=== PATIENT | female | born 1940 | race African-American/Black ===

== ENCOUNTER 2021-01-08 19:07 | Inpatient (IN) | payer MEDICARE, MEDICAID ==
[~2021-01-08] VITALS: Ht 160 cm; Wt 88.5 kg
[~2021-01-08 19:07] MED LIST: AMLO10TA80 PO; QUET100T PO; SIMV10TA97 PO
[2021-01-08 20:00] VITALS: BP 147/79
[2021-01-08] MEDS ORDERED: IPRATROPIUM/ALBUTEROL 0.5-3(2.5)MG/3ML NEB NEB PRN (20:30)
[2021-01-08] MEDS ORDERED: KETOROLAC 15MG/ML VIAL IV PRN (20:30)
[2021-01-08] MEDS ORDERED: MAGNESIUM/ALUMINUM HYDROXIDE/SIMETHICONE 30ML UDC PO PRN (20:30)
[2021-01-08] MEDS ORDERED: CLONIDINE 0.1MG TABLET PO PRN (20:30)
[2021-01-08] MEDS ORDERED: DOCUSATE SODIUM 100MG CAPSULE PO PRN (20:30)
[2021-01-08] MEDS ORDERED: NA PHOS,M-B/NA PHOS,DI-BA ENEMA 118ML PR PRN (20:30)
[2021-01-08] MEDS ORDERED: TRAMADOL 50MG TABLET PO PRN (20:30)
[2021-01-08] MEDS ORDERED: ACETAMINOPHEN 325MG TABLET PO PRN ×2 (20:30)
[2021-01-08] MEDS ORDERED: ONDANSETRON HCL 4MG/2ML INJ IV PRN (20:30)
[2021-01-08] MEDS ORDERED: GUAIFENESIN 200MG/10ML SUGAR FREE UDC PO PRN (20:30)
[2021-01-08] MEDS ORDERED: DEXTROSE 50% WATER 50ML SYRINGE IV PRN (21:45)
[2021-01-08 22:18] VITALS: BP 147/79
[2021-01-09] VITALS: BP 145/86
[2021-01-09 01:58] LABS: CLARITY URINE CLEAR (CLEAR); COLOR URINE YELLOW (YELLOW); KETONES URINE NEGATIVE (NEGATIVE); LEUKOCYTE ESTERASE URINE 3+ (NEGATIVE); NITRITE URINE NEGATIVE (NEGATIVE); OCCULT BLOOD URINE NEGATIVE (NEGATIVE); PH URINE 5.5 (4.5-8.0); PROTEIN URINE NEGATIVE (NEGATIVE); SPECIFIC GRAVITY URINE 1.014 (1.005-1.030); UROBILINOGEN URINE 0.2 E.U./dL (0.2-1.0)
[2021-01-09 02:08] LABS: *AMPHETAMINES SCREEN URINE NEGATIVE (NEGATIVE); *BARBITURATES SCREEN URINE NEGATIVE (NEGATIVE); *BENZODIAZEPINES SCREEN URINE NEGATIVE (NEGATIVE); *COCAINE SCREEN URINE NEGATIVE (NEGATIVE)
[2021-01-09 02:09] LABS: CANNABINOID URINE SCREEN NEGATIVE (NEGATIVE); METHADONE URINE SCREEN NEGATIVE (NEGATIVE); OPIATES URINE SCREEN NEGATIVE (NEGATIVE); PHENCYCLIDINE URINE SCREEN NEGATIVE (NEGATIVE)
[2021-01-09] MEDS: ASCORBIC ACID 500 MG TABLET PO SCH ×3 (03:20→20:24)
[2021-01-09 04:00] VITALS: BP 139/81
[2021-01-09 07:13] LABS: CHLORIDE 111 mEq/L (98-107)
[2021-01-09 07:16] LABS: BASOPHILS % 1.3 % (0.0-2.0); EOSINOPHILS % 3.2 % (0.0-5.0); HEMATOCRIT. 36.6 % (36.0-48.0); HEMOGLOBIN. 12.6 g/dL (12.0-16.0); MEAN CORPUSCULAR HEMOGLOBIN 31.8 pg (28.0-32.0); MEAN CORPUSCULAR VOLUME 92.2 fL (81.0-99.0); MEAN PLATELET VOLUME 8.6 fl (7.4-10.4); MONOCYTES % 7.6 % (2.0-8.0); NEUTROPHILS % 64.9 % (40.0-76.0); PHOSPHORUS 3.5 mg/dL (2.5-4.9); PLATELET 191 x1000/uL (130-400); RED BLOOD CELL COUNT 3.97 mill/uL (4.2-5.4); RED CELL DISTRIBUTION WIDTH 14.2 % (11.6-14.6)
[2021-01-09 07:17] LABS: LDL CHOLESTEROL 115 mg/dL (5-100)
[2021-01-09 07:18] LABS: CREATINE KINASE 86 IU/L (26-192); HDL CHOLESTEROL 86 mg/dL (40-59)
[2021-01-09 07:21] LABS: CREATINE KINASE MB FRACTION 1.2 ng/mL (0.5-3.6)
[2021-01-09 07:25] LABS: T4 FREE 0.97 ng/dL (0.76-1.46); TOTAL IRON BINDING CAPACITY 331 ug/dL (250-450)
[2021-01-09 07:30] LABS: FOLIC ACID (FOLATE) SERUM >20 ng/mL ng/mL (>5.38)
[2021-01-09] MEDS: BLOOD SUGAR DIAGNOSTIC STRIP TEST SCH ×4 (07:38→20:40)
[2021-01-09 07:41] LABS: VITAMIN B12 SERUM 630 pg/mL (211-911)
[2021-01-09] MEDS: INSULIN LISPRO 100 UNITS/ML SUBCUT SCH ×4 (07:50→20:41)
[2021-01-09 08:00] VITALS: BP 122/74
[2021-01-09] MEDS ORDERED: ASPIRIN 325MG EC TABLET PO SCH (09:00)
[2021-01-09] MEDS: FAMOTIDINE 20MG TABLET PO SCH ×2 (10:28→20:24)
[2021-01-09] MEDS: CLOPIDOGREL 75MG TABLET PO SCH (10:28)
[2021-01-09] MEDS: ZINC SULFATE 220 MG ( 50 ) CAPSULE PO SCH (10:28)
[2021-01-09] MEDS: ENOXAPARIN 40MG/0.4ML SYR SUBCUT SCH (10:29)
[2021-01-09 12:00] VITALS: BP 141/71
[2021-01-09] MEDS: PIPERACILLIN/TAZOBACTAM 3.375 G in DEXT 5% WATER 100 ML IV SCH ×2 (15:13→20:24)
[2021-01-09 16:00] VITALS: BP 124/68
[2021-01-09] MEDS: VANCOMYCIN 750 MG PREMIX 150 ML IV SCH (17:55)
[2021-01-09 20:00] VITALS: BP 122/66
[2021-01-10] MEDS: PIPERACILLIN/TAZOBACTAM 3.375 G in DEXT 5% WATER 100 ML IV SCH ×4 (02:00→20:00)
[2021-01-10 04:00] VITALS: BP 125/65
[2021-01-10] MEDS: BLOOD SUGAR DIAGNOSTIC STRIP TEST SCH ×4 (07:20→20:47)
[2021-01-10] MEDS: INSULIN LISPRO 100 UNITS/ML SUBCUT SCH ×4 (07:50→20:46)
[2021-01-10 08:00] VITALS: BP 143/68
[2021-01-10] MEDS: VANCOMYCIN 750 MG PREMIX 150 ML IV SCH (08:00)
[2021-01-10] MEDS: ASCORBIC ACID 500 MG TABLET PO SCH ×2 (09:13→20:45)
[2021-01-10] MEDS: ZINC SULFATE 220 MG ( 50 ) CAPSULE PO SCH (09:13)
[2021-01-10] MEDS: ENOXAPARIN 40MG/0.4ML SYR SUBCUT SCH (09:13)
[2021-01-10] MEDS: CLOPIDOGREL 75MG TABLET PO SCH (09:14)
[2021-01-10] MEDS: FAMOTIDINE 20MG TABLET PO SCH ×2 (09:14→20:45)
[2021-01-10 12:00] VITALS: BP 127/73
[2021-01-10 16:00] VITALS: BP 126/77
[2021-01-10 20:00] VITALS: BP 142/74
[2021-01-10] MEDS: ZOLPIDEM TARTRATE 5MG TABLET PO PRN (23:02)
[2021-01-11] MEDS: VANCOMYCIN 750 MG PREMIX 150 ML IV SCH ×2 (02:00→20:00)
[2021-01-11] MEDS: PIPERACILLIN/TAZOBACTAM 3.375 G in DEXT 5% WATER 100 ML IV SCH ×4 (02:00→20:00)
[2021-01-11 04:00] VITALS: BP 134/88
[2021-01-11] MEDS: BLOOD SUGAR DIAGNOSTIC STRIP TEST SCH ×4 (06:52→20:47)
[2021-01-11] MEDS: INSULIN LISPRO 100 UNITS/ML SUBCUT SCH ×4 (07:50→20:47)
[2021-01-11 08:00] VITALS: BP 139/82
[2021-01-11] MEDS: ZINC SULFATE 220 MG ( 50 ) CAPSULE PO SCH (08:51)
[2021-01-11] MEDS: ENOXAPARIN 40MG/0.4ML SYR SUBCUT SCH (08:51)
[2021-01-11] MEDS: FAMOTIDINE 20MG TABLET PO SCH ×2 (08:51→20:42)
[2021-01-11] MEDS: ASCORBIC ACID 500 MG TABLET PO SCH ×2 (08:51→20:42)
[2021-01-11] MEDS: CLOPIDOGREL 75MG TABLET PO SCH (08:51)
[2021-01-11 12:00] VITALS: BP 157/72
[2021-01-11 16:00] VITALS: BP 132/45
[2021-01-11 20:00] VITALS: BP 120/72
[2021-01-11] MEDS: ZOLPIDEM TARTRATE 5MG TABLET PO PRN (20:41)
[2021-01-11 23:51] VITALS: BP 123/66
[2021-01-12] VITALS: BP 131/78
[2021-01-12] MEDS: PIPERACILLIN/TAZOBACTAM 3.375 G in DEXT 5% WATER 100 ML IV SCH ×2 (01:09→08:00)
[2021-01-12 04:00] VITALS: BP 154/74
[2021-01-12] MEDS: BLOOD SUGAR DIAGNOSTIC STRIP TEST SCH ×2 (06:44→12:03)
[2021-01-12] MEDS: INSULIN LISPRO 100 UNITS/ML SUBCUT SCH ×2 (07:50→12:03)
[2021-01-12 08:00] VITALS: BP 134/60
[2021-01-12] MEDS: FAMOTIDINE 20MG TABLET PO SCH (08:54)
[2021-01-12] MEDS: ZINC SULFATE 220 MG ( 50 ) CAPSULE PO SCH (08:54)
[2021-01-12] MEDS: CLOPIDOGREL 75MG TABLET PO SCH (08:54)
[2021-01-12] MEDS: ASCORBIC ACID 500 MG TABLET PO SCH (08:54)
[2021-01-12] MEDS: ENOXAPARIN 40MG/0.4ML SYR SUBCUT SCH (08:55)
[2021-01-12 12:04] VITALS: BP 123/66
== END 2021-01-12 12:30 | DRG 871 ==
LOC: 6EST 19:07
PROVIDERS: ADMIT Internal Medicine; ATTEND Internal Medicine
DX: A41.9 Sepsis, unspecified organism (principal); G92 Toxic encephalopathy; N39.0 Urinary tract infection, site not specified; Z66 Do not resuscitate; E66.9 Obesity, unspecified; E11.9 Type 2 diabetes mellitus without complications; F03.90 Unspecified dementia, unspecified severity, without behavioral disturbance, psychotic disturbance, mood disturbance, and anxiety; I10 Essential (primary) hypertension; E78.00 Pure hypercholesterolemia, unspecified; Z79.02 Long term (current) use of antithrombotics/antiplatelets; Z79.4 Long term (current) use of insulin; Z86.73 Personal history of transient ischemic attack (TIA), and cerebral infarction without residual deficits; Z68.34 Body mass index [BMI] 34.0-34.9, adult
CPT/HCPCS: 36415; 80053; 80061; 80305; 81003; 82550; 82553; 82607; 82746; 82962; 83036; 83540; 83550; 83735; 83880; 84100; 84439; 84443; 84484; 85025; 93970; 97116; 97162; 97166; J1650; J2543; J3370; J7060